=== PATIENT | male | born 1970 | race Caucasian/White ===

== ENCOUNTER 2021-04-04 18:49 | Emergency (ER) | payer OTHER ==
[~2021-04-04] VITALS: Ht 177.8 cm; Wt 79.4 kg
[2021-04-04 20:30] VITALS: BP 138/76
--- NOTE | 2021-04-05 07:16 | EKG ---
[place] [address] [place] [address] ELECTROCARDIOGRAM REPORT Name: ARIEL JUSTIN Room #: [facility] [id number] Admission: 04/04/21 Attend Phys: Discharge: 04/04/21 Date of : 70 Report #: [id number] [facility] ED Test Date: 2021-04-04 Test Time: 19:48:38 Pat Name: ARIEL JUSTIN Department: Room: Gender: M [employer]: IRAIS : 1970 Requested By: Brandon Martínez Order Number: [id number] MD: Jorden Chin Measurements Intervals [place] Rate: 75 P: 61 DC: 141 QRS: -20 QRSD: 94 T: 33 QT: 373 QTc: 417 Interpretive Statements Sinus rhythm Borderline left axis deviation Baseline wander in lead(s) V5 No previous ECG available for comparison Electronically Signed On 04-05-2021 7:16:08 CDT by Jorden Chin [email or web address] <ELECTRONICALLY SIGNED> By: Jorden Chin MD, [facility] 04/05/21 0716 194 47 Jorden Chin MD, FACC /EPI
== END 2021-04-04 20:31 | disposition home or self-care (01) ==
LOC: ER 18:49
PROVIDERS: Nurse Practitioner
DX: F34.1 Dysthymic disorder (principal); Z20.822 Contact with and (suspected) exposure to COVID-19